=== PATIENT | male | born 1975 | race Caucasian/White ===

== ENCOUNTER → 2020-06-29 18:00 | Outpatient (CLI) | payer OTHER, SELFPAY ==
--- NOTE | 2020-06-29 18:03 | DI.MRI.S_ITS ---
PROCEDURE: MR KNEE RT WO CON INDICATIONS: PAIN IN RIGHT KNEE TECHNIQUE: Noncontrast sagittal PD fast spin echo and T2 fast spin echo with fat saturation, sagittal 3-D FLASH with fat saturation; coronal T1 spin echo and PD fast spin echo with fat saturation, and axial PD fast spin echo with fat saturation through the knee. COMPARISON: None. FINDINGS: Image quality: Excellent. Menisci: Horizontal oblique tear involving posterior horn of medial meniscus is seen extending to inferior articulating surface. There is no focal lateral meniscal tear. The meniscal root ligaments appear intact. Cruciate ligaments: The anterior and posterior cruciate ligaments appear intact. Medial structures: The medial collateral ligament appears intact. The posterior oblique ligament, semimembranosus tendon insertions, oblique popliteal ligament, and meniscocapsular junction appear intact. Visualized portions of the pes anserinus tendons appear normal. No abnormal bursal fluid. Lateral structures: The lateral collateral ligament, long and short heads of the biceps femoris tendon appear intact. The popliteus tendon appears normal; the popliteofibular ligament appears intact. The posterosuperior and anteroinferior popliteomeniscal fascicles appear intact. The arcuate and fabellofibular ligaments appear intact, on either side of the lateral inferior geniculate artery. Iliotibial band appears normal. Anterior structures: The quadriceps and patellar tendons appear intact. Patellar alignment is normal. No femoral trochlear dysplasia or ventral trochlear prominence. No edema in the infrapatellar fat pad. Bones and cartilage: No bone marrow contusions or fractures. The cartilage of the medial and lateral femorotibial compartments, as well as the patellofemoral compartment, appears normal in thickness. Joint space: There is small amount of joint fluid. No Pickens's cyst. Normal appearing synovial plicae are incidentally noted. IMPRESSION: 1. Horizontal oblique tear involving posterior horn of medial meniscus extending to inferior articulating surface. No focal lateral meniscal tear. 2. Cruciate ligaments are intact. 3. No marrow edema or fracture. Articulating cartilages are intact. Small amount of joint fluid. Dictated by: Willy Cash M.D. on 06/30/2020 at 9:05 Approved by: Willy Cash M.D. on 06/30/2020 at 9:11
== END ==
PROVIDERS: Referring Provider Student in an Organized Health Care Education/Training Program; Visit Provider Student in an Organized Health Care Education/Training Program
DX: M25.561 Pain in right knee (principal); S83.241A Other tear of medial meniscus, current injury, right knee, initial encounter
CPT/HCPCS: 73721

== ENCOUNTER → 2020-09-04 13:59 | Outpatient (CLI) | payer OTHER, SELFPAY ==
[2020-09-04 16:27] LABS: COVID19 -Nasal RAPID Negative (Negative)
== END ==
PROVIDERS: Visit Provider Physician Assistant
DX: Z01.812 Encounter for preprocedural laboratory examination (principal); Z20.822 Contact with and (suspected) exposure to COVID-19
CPT/HCPCS: 87635

== ENCOUNTER 2020-09-06 08:07 | Day surgery (SDC) | payer OTHER, SELFPAY ==
[2020-09-06 08:29] VITALS: BP 128/62; PULSE 65; RESP 16; TEMP 36.9; O2SAT 98
[2020-09-06 08:35] VITALS: BMI 29.0
[2020-09-06] MEDS: LACTATED RINGERS 1,000 ML 42 ML IV (08:48)
--- NOTE | 2020-09-06 08:58 | PM.HP.1 ---
History of Present Illness History of Present Illness Date Patient Seen: 09/06/20 Chief complaint: SDC Narrative: History of colon polyps Patient History Family & Social History Social History: household members spouse Tobacco & Substance use: Smoking Status Never smoker alcohol intake frequency a few times a month Substance Use Type does not use Meds Home Medications and Allergies Allergies Allergy/AdvReac Type Severity Reaction Status Date / Time Sulfa (Sulfonamide Allergy Severe Difficulty Verified 09/06/20 08:21 Antibiotics) Swallowing Exam Vital Signs (past 8 hours): - 09/06/20 08:29 Temperature 98.4 F Pulse Rate 65 Respiratory Rate 16 Blood Pressure 128/62 Pulse Oximetry 98 Oxygen Delivery Method Room Air Narrative Exam Narrative: Oropharynx free of lesions Chest clear to auscultation percussion Cardiac exam reveals no S3 or murmur Assessment & Plan Assessment & Plan narrative: History of colon polyps. Need for follow-up colonoscopy. Risks, benefits, alternatives have been explained.
--- NOTE | 2020-09-06 08:59 | PM.OP.ENDO ---
Operative Date/Time/Diagnoses Date of procedure: 09/06/20 Pre-op diagnosis: See indication Procedure & Clinicians Study performed: Colonoscopy Same procedure as scheduled: Yes Indications: History of colon polyps Surgeon: Esperanza Bloom Procedure Notes Procedure in detail: After informed consent was obtained the patient was placed in left lateral decubitus position. The video colonoscope was introduced the rectum slowly advanced to cecum. Preparation was good. On slow withdrawal mucosa was carefully examined. The scope was removed. The patient tolerated procedure well. Blood loss none Complications none Sedation Total sedation time 15 minutes Versed 6 mg fentanyl 100 mg IV titration Findings 1. Normal colonoscopy to cecum Patient should have follow-up colonoscopy in 10 years.
[2020-09-06] MEDS: MIDAZOLAM 5 MG/5 ML VIAL IV (09:47)
[2020-09-06] MEDS: fentaNYL 250 MCG/5 ML INJ IV (09:48)
[2020-09-06 10:06] VITALS: BP 125/92; PULSE 94; RESP 16; TEMP 36.4; O2SAT 90
[2020-09-06 10:10] VITALS: BP 123/83; PULSE 89; RESP 16; O2SAT 97
[2020-09-06 10:17] VITALS: BP 120/84; PULSE 64; RESP 16; O2SAT 97
[2020-09-06 10:23] VITALS: BP 116/87; PULSE 70; RESP 15; TEMP 36.4; O2SAT 95
--- NOTE | 2020-09-06 10:24 | SUR.PHASEI ---
Pt very sleepy, airway intact, )02 nasal cannual added, pt now more awake, 02 being weaned off.
[2020-09-06 10:45] VITALS: BP 124/88; PULSE 73; RESP 16; TEMP 36.4; O2SAT 95
== END 2020-09-06 10:49 | disposition home or self-care (01) ==
PROVIDERS: Referring Provider Internal Medicine Gastroenterology; Visit Provider Internal Medicine Gastroenterology
PROC: 0DJD8ZZ Inspection of Lower Intestinal Tract, Via Natural or Artificial Opening Endoscopic (ICD-10-PCS; CPT 45378; principal; 2020-09-06 09:30)
DX: Z12.11 Encounter for screening for malignant neoplasm of colon (principal); Z86.010 Personal history of colon polyps; K57.30 Diverticulosis of large intestine without perforation or abscess without bleeding
CPT/HCPCS: 45378; J2250; J3010

== ENCOUNTER 2020-10-02 18:53 | Emergency (ER) | payer OTHER, SELFPAY ==
[2020-10-02] VITALS (15 sets, daily range): BP systolic 117–148; BP diastolic 67–92; PULSE 59–78; RESP 13–30; TEMP 36.4; O2SAT 94–98; BMI 29.7
--- NOTE | 2020-10-02 19:11 | DI.RAD.S_ITS ---
PROCEDURE: XR CHEST 1V INDICATIONS: chest pain TECHNIQUE: One view of the chest was acquired. COMPARISON: None. FINDINGS: Surgical changes and devices: None. Lungs and pleura: Lungs are clear. No pleural effusions or pneumothorax. Mediastinum: Mediastinal contours appear normal. Heart size is normal. Bones and chest wall: No suspicious bony lesions. Overlying soft tissues appear unremarkable. IMPRESSION: No acute cardiopulmonary abnormalities or focal airspace disease. Dictated by: Brendon Campos M.D. on 10/02/2020 at 20:24 Approved by: Brendon Campos M.D. on 10/02/2020 at 20:24
[2020-10-02 19:28] LABS: Add Manual Diff / Slide Review NO; Basophils Absolute Auto 100 /uL (0-100); Basophils Percent Auto 0.9 % (0-2); Eosinophils Absolute Auto 300 /uL (0-450); Eosinophils Percent Auto 3.4 % (2-4); Hematocrit 48.2 % (41-53); Hemoglobin 16.6 g/dL (13.5-17.5); Lymphocytes Absolute Auto 2100 /uL (1100-4500); Lymphocytes Percent Auto 22.3 % (25-40); Mean Corpuscular HGB Conc 34.5 % (30-36); Mean Corpuscular Hemoglobin 29.5 PG (26-34); Mean Corpuscular Volume 85.4 fL (80-100); Monocytes Absolute Auto 500 /uL (0-900); Monocytes Percent Auto 5.5 % (3-14); Neutrophils Absolute Auto 6400 /uL (1500-7000); Neutrophils Percent Auto 67.9 % (50-75); Platelet Count 318 X10^3/uL (150-400); Red Blood Cell Count 5.65 X10^6/uL (4.5-5.9); Red Cell Distribution Width 13.7 % (11.6-14.8); White Blood Cell Count 9.4 X10^3/uL (4.5-11.0)
[2020-10-02 19:37] LABS: Alanine Aminotransferase 35 IU/L (<50); Albumin Globulin Ratio 1.4 (1.0-2.8); Alkaline Phosphatase 49 U/L (38-126); Aspartate Aminotransferase 36 IU/L (17-59); BUN Creatinine Ratio 11.3 (6-22); Bilirubin Total 0.7 mg/dL (0.2-1.3); Blood Urea Nitrogen 13 mg/dL (9-20); Calcium 9.9 mg/dL (8.4-10.2); Carbon Dioxide 29 mmol/L (22-32); Chloride 103 mmol/L (98-107); Creatine Kinase 123 U/L (55-170); Estimated Glomerular Filt Rate > 60.0 mL/min (>60); Globulin 3.5 g/dL (1.7-4.1); Glucose 95 mg/dL (70-100); HEMOLYSIS < 15 (0-50); Lipase 94 U/L (23-300); Magnesium 2.1 mg/dL (1.6-2.3); Potassium 4.5 mmol/L (3.4-5.1); Sodium 141 mmol/L (137-145); Total Protein 8.5 g/dL (6.3-8.2)
[2020-10-02 19:48] LABS: Troponin I < 0.012 ng/mL (0.01-0.034)
[2020-10-02 19:52] LABS: CKMB % Relative Index 0.5 % (1.5-5.0); Creatine Kinase MB 0.56 ng/mL (<2.37)
[2020-10-02] MEDS: NITROGLYCERIN 0.4 MG SL TAB SL ×3 (20:13→20:26)
[2020-10-02] MEDS: ASPIRIN 81 MG CHEW TAB 324 MG PO (20:13)
[2020-10-02 21:42] LABS: Troponin I < 0.012 ng/mL (0.01-0.034)
[2020-10-03] VITALS: BP 132/81; PULSE 59; RESP 18; O2SAT 93
--- NOTE | 2020-10-03 00:13 | ED.CHESTPAIN ---
HPI - Chest Pain General Chief Complaint: Chest Pain Stated Complaint: chest pain x 2 weeks Time Seen by Provider: 10/03/20 00:13 Source: patient Mode of arrival: Ambulatory Limitations: no limitations History of Present Illness HPI narrative: This is a 45-year-old male comes with complaint of chest pain for the past 2 weeks. Patient describes left-sided chest pressure. He states it has been intermittent and does not seem to have any any exacerbating or alleviating factors except he did have an issue where he was rolling over on his stomach and noted that willing undecided on to his chest made it more uncomfortable. Patient states the most recent episode started yesterday and was continuous throughout all day today. States worse has been 5/6 with improvement to 3/4. But has not resolved. Patient denies any shortness of breath, no diaphoresis. It does not radiate anywhere. He has not had any change in location. He has not skin changes. No fevers, no cough cold or congestion. Patient has not had similar symptoms in the past. He is quite active and he runs regularly and works out regularly in the [email or web address]. Patient takes Aleve and stool softeners regularly. He does not any other known medical history. No prior surgeries. No family history besides lung cancer in his mother with no prior cardiac, embolic or pulmonary history otherwise. Allergic to sulfa. No tobacco, occasional alcohol and no illicit. Related Data Allergies Allergy/AdvReac Type Severity Reaction Status Date / Time Sulfa (Sulfonamide Allergy Severe Difficulty Verified 09/06/20 08:21 Antibiotics) Swallowing Review of Systems Review of Systems ROS Unobtainable: All systems reviewed & are unremarkable except as noted in HPI and below Patient History Social History household members: spouse Smoking Status: Never smoker Smoking Status: Never smoker alcohol intake frequency: a few times a month Substance Use Type: does not use Exam Narrative Exam Narrative: GENERAL: Alert and oriented x three, well-nourished male in mild distress. HEENT: Head normocephalic, atraumatic, EOMI, pupils reactive, face symmetric, moist mucous membranes NECK: Supple, full range of motion CARDIOVASCULAR: Regular rate and rhythm without murmurs, rubs or gallops. No reproducible chest pain. No rash, erythema or other skin changes appreciated. RESPIRATORY: Breath sounds equal bilaterally, no wheezes rales or rhonchi. ABDOMEN: Soft, nontender. Normoactive bowel sounds all 4 quadrants. No guarding or rebound, rigidity, no mass, no bruit pulsatile mass. : No CVA tenderness BACK: No cervical, thoracic or lumbar vertebral point tenderness. Patient has normal range of motion. Patient patient is noted to have some hypertrophy of the muscles of his left back it to the mid thoracic range. Areas nontender with no skin changes. EXTREMITIES: Normal range of motion, no clubbing or edema. Neurovascularly intact NEUROLOGICAL: Cranial nerves II through XII grossly intact. Moving all extremities SKIN: Warm, dry, no petechiae, no rashes or lesions. Initial Vital Signs Initial Vital Signs: Vital Signs Temperature 97.6 F 10/02/20 19:12 Pulse Rate 61 10/02/20 19:12 Respiratory Rate 16 10/02/20 19:12 Blood Pressure 148/78 H 10/02/20 19:12 Pulse Oximetry 97 10/02/20 19:12 Scores HEART Score Heart Score history: Slightly Suspicious Heart Score EKG: Normal Heart Score Age: 45-64 years old Heart Score risk factors: No known risk factors Heart Score troponin: < or = to normal limit Heart Score Total: 1 Course Orders Ordered: Discontinued Medications Aspirin (Aspirin 81 Mg Chew Tab) 324 mg PO NOW ONE Stop: 10/02/20 20:09 Last Admin: 10/02/20 20:13 Dose: 324 mg Documented by: SELMA Nitroglycerin (Nitroglycerin 0.4 Mg Sl Tab) 0.4 mg SL [id number] PRN PRN Reason: Chest Pain Last Admin: 10/02/20 20:26 Dose: 0.4 mg Documented by: Admin: 10/02/20 20:21 Dose: 0.4 mg Documented by: Admin: 10/02/20 20:13 Dose: 0.4 mg Documented by: SELMA Vital Signs Vital signs: Vital Signs - 8 hr 10/02/20 23:00 10/02/20 23:30 10/03/20 00:00 Pulse Rate 63 59 L 59 L Respiratory Rate 22 16 18 Blood Pressure 139/91 H 136/88 132/81 Pulse Oximetry 95 94 93 MDM - Chest Pain Lab Data Result diagrams: 10/02/20 19:09 10/02/20 19:09 Labs: Lab Results 10/02/20 10/02/20 10/02/20 Range/Units 19:09 19:09 21:15 WBC 9.4 (4.5-11.0) X10^3/uL RBC 5.65 (4.5-5.9) X10^6/uL Hgb 16.6 (13.5-17.5) g/dL Hct 48.2 (41-53) % MCV 85.4 (80-100) fL MCH 29.5 (26-34) PG MCHC 34.5 (30-36) % RDW 13.7 (11.6-14.8) % Plt Count 318 (150-400) X10^3/uL Neut % (Auto) 67.9 (50-75) % Lymph % (Auto) 22.3 L (25-40) % [place] % (Auto) 5.5 (3-14) % Eos % (Auto) 3.4 (2-4) % Baso % (Auto) 0.9 (0-2) % Neut # (Auto) 6400 (1414-3013) /uL Lymph # (Auto) 2100 (9052-0606) /uL [place] # (Auto) 500 (0-900) /uL Eos # (Auto) 300 (0-450) /uL Baso # (Auto) 100 (0-100) /uL Sodium 141 (137-145) mmol/L Potassium 4.5 (3.4-5.1) mmol/L Chloride 103 (98-107) mmol/L Carbon Dioxide 29 (22-32) mmol/L BUN 13 (9-20) mg/dL Creatinine 1.15 (0.66-1.25) mg/dL Estimated GFR > 60.0 (>60) mL/min BUN/Creatinine Ratio 11.3 (6-22) Glucose 95 (70-100) mg/dL Calcium 9.9 (8.4-10.2) mg/dL Magnesium 2.1 (1.6-2.3) mg/dL Total Bilirubin 0.7 (0.2-1.3) mg/dL AST 36 (17-59) IU/L ALT 35 (<50) IU/L Alkaline Phosphatase 49 (38-126) U/L Total Creatine Kinase 123 (55-170) U/L CK-MB (CK-2) 0.56 (<2.37) ng/mL CK-MB (CK-2) Rel Index 0.5 L (1.5-5.0) % Troponin I < 0.012 < 0.012 (0.01-0.034) ng/mL Total Protein 8.5 H (6.3-8.2) g/dL Albumin 5.0 (3.5-5.0) g/dL Globulin 3.5 (1.7-4.1) g/dL Albumin/Globulin Ratio 1.4 (1.0-2.8) Lipase 94 (23-300) U/L Urine Dip Bedside Urine Glucose Negative Bedside Urine Bilirubin - Negative Bedside Urine Ketone - Negative Urine Specific [place] 1.015 Bedside Urine Occult Blood - Negative Bedside Urine pH 6.0 Bedside Urine Protein - Negative Bedside Urine Urobilinogen +/- 1mg Bedside Urine Nitrite - Negative Bedside Urine Leukocytes - Negative Esterase Imaging Data Chest x-ray: Radiologist's Impression: [address] [id number] ReportSigned Patient: Mendez Denney LMR#: [id number]: [id number]:[id number]/Sex: 45 / MDate of Service: 10/02/20Loc: EDAccession Number: [id number] Procedure: XR chest 1V Ordering Provider: Nohemi Gilmore D.O. PROCEDURE: XR CHEST 1V INDICATIONS: chest pain TECHNIQUE: One view of the chest was acquired. COMPARISON: None. FINDINGS: Surgical changes and devices: None. Lungs and pleura: Lungs are clear. No pleural effusions or pneumothorax. Mediastinum: Mediastinal contours appear normal. Heart size is normal. Bones and chest wall: No suspicious bony lesions. Overlying soft tissues appear unremarkable. IMPRESSION: No acute cardiopulmonary abnormalities or focal airspace disease. Dictated by: Brendon Campos M.D. on 10/02/2020 at 20:24 Approved by: Brendon Campos M.D. on 10/02/2020 at 20:24 ECG Data Interpretation: Sinus bradycardia rate of 50 9p are 186 QRS of 94 and QTC of 392. No acute ST changes appreciated. No priors for evaluation except for earlier today at 1645 from walk-in clinic which appears similar to the emergency department. EKG 2 sinus rhythm, rate of 60 3p are 184 QRS 88 QTC of 392. Patient's EKG appears similar to prior. MDM Narrative Medical decision making narrative: This is a 45-year-old male with chest pain that has been present through the entire day. Patient has had negative troponins x2, no acute EKG changes appreciated. Chest x-ray is negative. Heart score is 1. Discharge Plan Departure Patient Disposition: Home Clinical Impression: Chest pain Activity Restrictions/Additional Instructions: Follow-up with her physician, your EKGs and troponin today do not show any obvious acute changes. This makes a cardiac event unlikely but not impossible. I would discuss with your physician if they feel stress testing is warranted. There are other possible causes that seem more likely such as musculoskeletal. You may wish to take an aspirin 81 mg daily until seen by your physician. Please return for fevers, new chest pain, shortness of breath, lightheadedness or passing out, diaphoresis, nausea or vomiting, new swelling in your extremities or other new or concerning symptoms. Referrals: Blu Chiu [Primary Care Provider] -
== END 2020-10-03 00:43 | disposition home or self-care (01) ==
PROVIDERS: Emergency Provider Emergency Medicine; PCP Student in an Organized Health Care Education/Training Program
DX: R07.9 Chest pain, unspecified (principal)
CPT/HCPCS: 36415; 71045; 80053; 81003; 82550; 82553; 83690; 83735; 84484; 85025; 93005; 93010; 99284